=== PATIENT | male | born 1980 | race Caucasian/White ===

== ENCOUNTER 2019-03-21 01:32 | Emergency (ER) | payer MEDICAID ==
[2019-03-21 01:37] VITALS: BP 116/105; PULSE 88; O2SAT 97
--- NOTE | 2019-03-21 02:10 | ERPHSYRPT ---
- History of Present Illness Time Seen by Provider: 03/21/19 02:05 Source: patient Exam Limitations: no limitations Patient Subjective Stated Complaint: pt states, "I got pulled over and my eyes were slow to respond so I got an order from the fire sprinkler fitter for drug test". Triage Nursing Assessment: pt transported to rm 5, via police. Pt alert and oriented x3, cooperative. Pt moving restlessly in bed, arms and legs twitching. Lungs clear, heart tones reg, abd soft with active bs x4 quad, nontender. Physician History: 38 years old male with history of drug abuse is brought to the ER by police after he got pulled was found intoxicated. Patient is moving his arms and legs , restless, does admit to using methamphetamine today. Patient report he does binge on drugs and has relapse after a few months being drug-free. He denies any headache, chest pain, palpitations or shortness of breath. Denies any abdominal pain nausea or vomiting. Timing/Duration: today Severity of Symptoms-Max: moderate Severity of Symptoms-Current: moderate Suicidal thoughts: other Previous symptoms: same symptoms as today Allergies/Adverse Reactions: bee venom protein (honey bee) Adverse Reaction (Verified 03/21/19 01:44) Swelling of Hands Home Medications: Escitalopram Oxalate 10 mg [Lexapro 10 MG] 10 mg PO DAILY 03/21/19 [History] Hx Tetanus, Diphtheria Vaccination/Date Given: No Hx Influenza Vaccination/Date Given: No Hx Pneumococcal Vaccination/Date Given: No Immunizations Up to Date: No - Past Medical History Pertinent Past Medical History: Yes Neurological History: No Pertinent History ENT History: No Pertinent History Cardiac History: No Pertinent History Respiratory History: No Pertinent History Endocrine Medical History: No Pertinent History Musculoskeletal History: Fractures GI Medical History: Hernia History: No Pertinent History Psycho-Social History: Anxiety, Depression Male Reproductive Disorders: No Pertinent History - Past Surgical History Past Surgical History: Yes Neuro Surgical History: No Pertinent History Cardiac: No Pertinent History Respiratory: No Pertinent History Gastrointestinal: Hernia Repair Genitourinary: No Pertinent History Musculoskeletal: Orthopedic Surgery Male Surgical History: No Pertinent History Other Surgical History: shattered rt heel, fixed - Social History Smoking Status: Current every day smoker How long have you smoked: 20 yrs Exposure to second hand smoke: Yes Drug Use: none Patient Lives Alone: Yes - Review of Systems Constitutional: No Symptoms Eyes: No Symptoms Ears, Nose, & Throat: No Symptoms Respiratory: No Symptoms Cardiac: No Symptoms Abdominal/Gastrointestinal: No Symptoms Musculoskeletal: No Symptoms Skin: No Symptoms, Skin Lesions Psychological: Mood Changes Endocrine: No Symptoms Hematologic/Lymphatic: No Symptoms - Nursing Vital Signs Nursing Vital Signs: Initial Vital Signs Temperature 98.2 F 03/21/19 01:35 Pulse Rate 88 03/21/19 01:35 Respiratory Rate 17 03/21/19 01:35 Blood Pressure 116/105 03/21/19 01:35 O2 Sat by Pulse Oximetry 97 03/21/19 01:35 Pain Scale Pain Intensity 0 - Physical Exam General Appearance: no apparent distress Eyes, Ears, Nose, Throat Exam: normal ENT inspection, TMs normal, pharynx normal Neck Exam: normal inspection, non-tender, supple, full range of motion Respiratory Exam: normal breath sounds, lungs clear, No chest tenderness, No respiratory distress Cardiovascular Exam: regular rate/rhythm, normal heart sounds, normal peripheral pulses Gastrointestinal/Abdominal Exam: soft, normal bowel sounds, No tenderness, No distention, No mass, No guarding Extremities Exam: normal inspection, normal range of motion, evidence of injury Neurological Exam: alert, canvas baster jumpbasting II-XII nml as tested, oriented x 3 Appearance: appropriate appearance Behavior/Eye Contact/Speech: alert & cooperative, normal speech, avoids eye contact, intoxicated appearance (restless) Thoughts/Hallucinations: normal thought pattern Skin Exam: normal color SpO2 Interpretation: normal SpO2: 97 O2 Delivery: Room Air - Course Nursing assessment & vital signs reviewed: Yes Ordered Tests: Active Orders 24 hr Category Date Time Status CBC W DIFF Stat Lab 03/21/19 02:51 Completed CMP Stat Lab 03/21/19 02:51 Completed ETHYL ALCOHOL Stat Lab 03/21/19 02:51 Completed Urine Triage Profile Stat Lab 03/21/19 02:03 Uncollected Lab/Rad Data: Laboratory Result Diagrams 03/21/19 02:51 03/21/19 02:51 Laboratory Results 03/21/19 03/21/19 Range/Units 02:51 02:51 WBC 9.9 (4.0-10.5) K/mm3 RBC 4.36 (4.1-5.6) M/mm3 Hgb 13.9 (12.5-18.0) gm/dl Hct 41.0 L (42-50) % MCV 94.0 (78-100) fl MCH 31.9 (26-32) pg MCHC 33.9 (32-36) g/dl RDW 12.3 (11.5-14.0) % Plt Count 340 (150-450) K/mm3 MPV 9.0 (6-9.5) fl Gran % 61.1 (36.0-66.0) % Eos # (Auto) 0.09 (0-0.5) Absolute Lymphs (auto) 2.72 (1.0-4.6) Absolute Monos (auto) 1.00 (0.0-1.3) Lymphocytes % 27.4 (24.0-44.0) % Monocytes % 10.1 (0.0-12.0) % Eosinophils % 0.9 (0.00-5.0) % Basophils % 0.5 (0.0-0.4) % Absolute Granulocytes 6.08 (1.4-6.9) Basophils # 0.05 (0-0.4) Sodium 141 (137-145) mmol/L Potassium 3.8 (3.5-5.1) mmol/L Chloride 107 (98-107) mmol/L Carbon Dioxide 23 (22-30) mmol/L Anion Gap 14.5 (5-15) MEQ/L BUN 14 (9-20) mg/dL Creatinine 0.85 (0.66-1.25) mg/dL Estimated GFR > 60.0 ML/MIN Glucose 94 (74-106) mg/dL Calcium 9.4 (8.4-10.2) mg/dL Total Bilirubin 0.60 (0.2-1.3) mg/dL AST 61 H (17-59) U/L ALT 41 (0-50) U/L Alkaline Phosphatase 107 (38-126) U/L Serum Total Protein 8.3 H (6.3-8.2) g/dL Albumin 4.5 (3.5-5.0) g/dL Ethyl Alcohol < 10 (0-10) mg/dL - Progress Progress: unchanged, re-examined (her) Counseled pt/family regarding: drug and/or alcohol abuse, lab results, diagnosis , need for follow-up, smoking cessation - Departure Departure Disposition: Retirement/Intermediate Clinical Impression: Drug abuse Condition: Stable Critical Care Time: No Referrals: [facility] [LOCATION] - RANGEL HOFF [ACTIVE STAFF] - Follow Up with PCP/3 days Instructions: Drug Abuse and Drug Addiction (DC) Additional Instructions: followup with primary care for reevaluation. Return to ER for any worsening.
[2019-03-21 02:50] LABS: Absolute Neutrophil Ct (ANC) 6.08 (1.4-6.9); BASOPHIL % 0.5 % (0.0-0.4); Basophil (Absolute #) 0.05 (0-0.4); Eosinophil % 0.9 % (0.00-5.0); Eosinophil (Absolute #) 0.09 (0-0.5); Hemoglobin 13.9 gm/dl (12.5-18.0); Lymphocyte (Absolute #) 2.72 (1.0-4.6); Lymphocytes % 27.4 % (24.0-44.0); Mean Corpuscular Hemoglobin 31.9 pg (26-32); Mean Corpuscular Hgb Concent. 33.9 g/dl (32-36); Monocytes % 10.1 % (0.0-12.0); Neutrophil % 61.1 % (36.0-66.0); Platelet Count 340 K/mm3 (150-450); Red Blood Count 4.36 M/mm3 (4.1-5.6); Red Cell Distribution Width 12.3 % (11.5-14.0); White Blood Count 9.9 K/mm3 (4.0-10.5)
[2019-03-21 03:02] LABS: ALBUMIN 4.5 g/dL (3.5-5.0); ALKALINE PHOSPHATASE 107 U/L (38-126); ANION GAP 14.5 MEQ/L (5-15); BLOOD UREA NITROGEN 14 mg/dL (9-20); CHLORIDE 107 mmol/L (98-107); Calcium 9.4 mg/dL (8.4-10.2); Carbon Dioxide 23 mmol/L (22-30); Creatinine 1 0.85 mg/dL (0.66-1.25); Glucose 94 mg/dL (74-106); Potassium 3.8 mmol/L (3.5-5.1); SGOT/AST 61 U/L (17-59); SGPT/ALT 41 U/L (0-50); SODIUM 141 mmol/L (137-145); Total Protein 8.3 g/dL (6.3-8.2)
[2019-03-21 03:03] LABS: ETHYL ALCOHOL < 10 mg/dL (0-10)
== END 2019-03-21 03:22 | disposition home or self-care (01) ==
LOC: ED 01:32 → EEVIPCON 01:32 → ED 03:22
DX: F19.10 Other psychoactive substance abuse, uncomplicated (principal)
CPT/HCPCS: 36415; 80053; 80307; 85025; 99283; G0480